=== PATIENT | male | born 1985 | race Two or more races ===

== ENCOUNTER 2018-12-29 09:44 | Emergency (ER) | payer BC ==
[~2018-12-29] VITALS: Ht 182.9 cm; Wt 97.7 kg
[2018-12-29] MEDS ORDERED: IBUPROFEN 600 MG TABLET PO ONE (10:45)
[2018-12-29] MEDS ORDERED: LIDOCAINE/PF 1% 5 ML VIAL INJ ONE (10:45)
[2018-12-29] MEDS ORDERED: SULFAMETHOX/TRIMETH DS 800-160 MG/TABLET PO ONE (10:45)
[2018-12-29] MEDS ORDERED: CEPHALEXIN MONOHYDRATE 500 MG CAPSULE PO ONE (10:45)
[2018-12-29 11:56] VITALS: BP 133/83
== END 2018-12-29 12:10 | disposition home or self-care (01) ==
LOC: EMS 09:47
DX: L02.415 Cutaneous abscess of right lower limb (principal); L03.115 Cellulitis of right lower limb
CPT/HCPCS: 10060; 87070; 87077; 87186; 87205; 99284; J2001

== ENCOUNTER 2018-12-31 07:41 | Emergency (ER) | payer BC ==
[~2018-12-31] VITALS: Ht 182.9 cm; Wt 97.7 kg
[2018-12-31 07:45] VITALS: BP 124/56
== END 2018-12-31 08:33 | disposition home or self-care (01) ==
LOC: EMS 07:44
DX: L03.115 Cellulitis of right lower limb (principal)